=== PATIENT | male | born 1955 | race American Indian/Alaskan Native ===

== ENCOUNTER 2018-03-25 13:59 | Inpatient (IN) | payer MEDICAID, OTHER ==
[2018-03-25 14:55] VITALS: BMI 22.0
--- NOTE | 2018-03-25 15:18 | RAD ---
Date of service: 03/25/2018 HISTORY: chest pain COMPARISON: 08/16/2015 FINDINGS: LUNGS: No active pulmonary disease. PLEURA: No significant pleural effusion identified, no pneumothorax apparent. CARDIOVASCULAR: Normal. OSSEOUS STRUCTURES: No significant abnormalities. VISUALIZED UPPER ABDOMEN: Normal. OTHER FINDINGS: None. IMPRESSION: No active disease.
[2018-03-25 16:01] LABS: BASO # 0.02 K/mm3 (0.0-2.0); BASO % 0.5 % (0.0-3.0); EOS # 0.1 (0.0-0.7); EOS % 1.6 % (1.5-5.0); GRAN # 2.21 (1.4-6.5); GRAN % 58.8 % (50.0-68.0); HEMOGLOBIN 12.7 g/dL (14.0-18.0); LYMPH # 1.2 (1.2-3.4); MEAN CELL VOLUME 86.7 fl (80.0-105.0); MEAN CORPUSCULAR HEMOGLOBIN 30.2 pg (25.0-35.0); MEAN CORPUSCULAR HGB CONC 34.8 g/dl (31.0-37.0); MONO # 0.2 (0.1-0.6); MONO % 6.1 % (1.0-6.0); RBC 4.21 10^6/uL (3.5-6.1); WHITE BLOOD COUNT 3.8 10^3/ul (4.5-11.0)
[2018-03-25 16:14] LABS: TROPONIN I < 0.01 ng/mL
[2018-03-25 16:21] LABS: ALB/GLOB RATIO 1.4 (1.1-1.8); ALBUMIN 3.8 g/dL (3.0-4.8); ALT/SGPT 25 U/L (7-56); AST/SGOT 20 U/L (17-59); BLOOD UREA NITROGEN 12 mg/dL (7-21); CALCIUM 8.9 mg/dL (8.4-10.5); GFR NON-AFRICAN AMERICAN > 60
[2018-03-25] MEDS ORDERED: Sodium Chloride 0.9% 1,000 ML IV STA (16:33)
[2018-03-25] MEDS ORDERED: Insulin Regular 1 UNITS/0.01 ML ML IVP STA (16:34)
[2018-03-25 16:56] LABS: INR 0.97; PARTIAL THROMBOPLASTIN TIME 27.8 Seconds (25.1-36.5)
--- NOTE | 2018-03-25 17:30 | ED PDOC ---
Arrival/HPI - General Historian: Patient - History of Present Illness Narrative History of Present Illness (Text): 03/25/18 17:26 62yo male with pmhx of NIDDM and neuropathy who present with complaint of chest pain and lower back pain. States b/l LE pain is chronic. Also complain of nonproductive chest pain x 2days. States chest pain is localized to his retrosternal area. Describes as pain just sitting there. States he have not seen the Doctor for over a year now. States he found one Metformin yesterday that he took. He denies nausea,vomiting, diaphoresis, fever, chills, Le edema, calf pain, abdominal pain, sick contact, travel, any other complaint. <Ajay Robertson A - Last Filed: 03/25/18 19:33> <Rm Stoner - Last Filed: 03/30/18 18:39> - General Chief Complaint: Chest Pain Time Seen by Provider: 03/25/18 14:07 Past Medical History - Provider Review Nursing Documentation Reviewed: Yes - Infectious Disease Hx of Infectious Diseases: None - Tetanus Immunization Tetanus Immunization: Unknown - Cardiac Hx Cardiac Disorders: No - Pulmonary Hx Respiratory Disorders: No - Neurological Hx Neurological Disorder: No - HEENT Hx HEENT Disorder: No - Renal Hx Renal Disorder: No - Endocrine/Metabolic Hx Diabetes Mellitus Type 2: Yes - Hematological/Oncological Hx Blood Transfusions: No - Musculoskeletal/Rheumatological Hx Musculoskeletal Disorders: No Hx Falls: No - Genitourinary/Gynecological Hx Prostate Cancer: Yes - Psychiatric Hx Psychophysiologic Disorder: No Hx Substance Use: Yes - Surgical History Other/Comment: penis surgery - Anesthesia Hx Anesthesia: No <Ajay Robertson A - Last Filed: 03/25/18 19:33> Family/Social History - Physician Review Nursing Documentation Reviewed: Yes Family/Social History: Unknown Family HX Smoking Status: Current Some Days Smoker Hx Alcohol Use: No Hx Substance Use: Yes Substance used: marijuana <Ajay Robertson A - Last Filed: 03/25/18 19:33> Allergies/Home Meds <Ajay Robertson A - Last Filed: 03/25/18 19:33> <Rm Stoner - Last Filed: 03/30/18 18:39> Allergies/Adverse Reactions: Allergies No Known Allergies Allergy (Verified 08/15/15 10:23) Review of Systems - Physician Review All systems were reviewed & negative as marked: Yes - Review of Systems Constitutional: Normal Eyes: Normal ENT: Normal Respiratory: Cough. absent: SOB, Sputum, Wheezing Cardiovascular: Chest Pain Gastrointestinal: Normal Genitourinary Male: Normal Musculoskeletal: Normal Skin: Normal Neurological: Normal Endocrine: Normal Hemo/Lymphatic: Normal Psychiatric: Normal <Diru,Happiness A - Last Filed: 03/25/18 19:33> Physical Exam Vital Signs Reviewed: Yes Vital Signs Pulse Resp BP Pulse Ox 03/25/18 14:52 85 16 144/79 100 Temperature: Afebrile Blood Pressure: Normal Pulse: Regular Respiratory Rate: Normal Appearance: Positive for: Well-Appearing, Non-Toxic, Comfortable, Other (Appear older than stated age) Pain Distress: None Mental Status: Positive for: Alert and Oriented X 3 Finger Stick Blood Glucose: 498 - Systems Exam Head: Present: Atraumatic, Normocephalic Pupils: Present: PERRL Extroacular Muscles: Present: EOMI Conjunctiva: Present: Normal Mouth: Present: Moist Mucous Membranes Neck: Present: Normal Range of Motion Respiratory/Chest: Present: Clear to Auscultation, Good Air Exchange. No: Respiratory Distress, Accessory Muscle Use, Wheezes, Decreased Breath Sounds, Rales, Retracting, Rhonchi Cardiovascular: Present: Regular Rate and Rhythm, Normal S1, S2. No: Murmurs Abdomen: No: Tenderness, Distention, Peritoneal Signs Back: Present: Normal Inspection Upper Extremity: Present: Normal Inspection. No: Cyanosis, Edema Lower Extremity: Present: Normal Inspection, NORMAL PULSES. No: Edema, CALF TENDERNESS, Isabell's Sign, Tenderness Neurological: Present: GCS=15, CN II-XII Intact, Speech Normal Skin: Present: Warm, Dry, Normal Color. No: Rashes Psychiatric: Present: Alert, Oriented x 3, Normal Insight, Normal Concentration <Diru,Happiness A - Last Filed: 03/25/18 19:33> Vital Signs Temp Pulse Pulse Resp BP Pulse Ox 03/25/18 23:46 68 19 03/25/18 23:33 97.6 F 69 18 137/70 97 03/25/18 22:33 97.6 F 69 18 137/70 97 03/25/18 22:03 70 18 144/78 100 03/25/18 18:00 98 F 67 18 150/83 99 03/25/18 14:52 85 16 144/79 100 <Rm Stoner - Last Filed: 03/30/18 18:39> Medical Decision Making ED Course and Treatment: 03/25/18 19:38 Pt in ED for stated history. He is not complaint with his medication. He appeared older than his stated age. EKG Sinus rhythm with PVC @ 79bpm; RBBB N-STEMI ASA Lab reviewed and first CE was negative Elevated BS was noted and pt was hydrated and 10unit of insulin given. On re evaluation his BS improved s/p. He was not in DKA. CXR NAD Secondary to pt's cardiac history, he will be admitted for further observation. Result and plan was DW the shereen and he agreed. Case was DW Dr. Andrew and she accepted pt for admission. - Lab Interpretations Lab Results: 03/25/18 15:35 03/25/18 15:35 Lab Results 03/25/18 16:46: POC Glucose (mg/dL) 423 H* 03/25/18 15:35: Sodium 133, Potassium 4.4, Chloride 96 L, Carbon Dioxide 32, Anion Gap 11, BUN 12, Creatinine 0.7 L, Est GFR ( Amer) > 60, Est GFR (Non-Af Amer) > 60, Random Glucose 498 H* D, Calcium 8.9, Magnesium 1.7, Total Bilirubin 0.3, AST 20, ALT 25, Alkaline Phosphatase 108, Lactate Dehydrogenase 438, Total Creatine Kinase 42, Troponin I < 0.01, Total Protein 6.5, Albumin 3 .8, Globulin 2.7, Albumin/Globulin Ratio 1.4 03/25/18 15:35: PT 11.0, INR 0.97, APTT 27.8 03/25/18 15:35: WBC 3.8 L D, RBC 4.21, Hgb 12.7 L D, Hct 36.5 L, MCV 86.7 D, MCH 30.2, MCHC 34.8, RDW 12.0, Plt Count 244, MPV 10.0, Gran % 58.8, Lymph % (Auto) 33.0, Leake % (Auto) 6.1 H, Eos % (Auto) 1.6, Baso % (Auto) 0.5, Gran # 2.21, Lymph # (Auto) 1.2, Leake # (Auto) 0.2, Eos # (Auto) 0.1, Baso # (Auto) 0.02 - RAD Interpretation Radiology Orders: 03/25/18 14:42 CHEST PORTABLE [RAD] Stat - Medication Orders Current Medication Orders: Aspirin (Aspirin) 325 mg PO STAT STA Stop: 03/25/18 17:26 Sodium Chloride (Sodium Chloride 0.9%) 1,000 mls @ 999 mls/hr IV .Q1H1M STA Stop: 03/25/18 17:33 Last Admin: 03/25/18 16:44 Dose: 999 mls/hr eMAR Start Stop Document 03/25/18 16:44 [facility] ([id number] Intraven[facility] Solution Start Date 03/25/18 Start Time 16:45 End Date 03/25/18 End time 17:45 Total Infusion Time 60 Discontinued Medications Insulin Human Regular (Humulin R) 10 units IVP ONCE STA Stop: 03/25/18 16:35 Last Admin: 03/25/18 16:45 Dose: 10 units MAR Blood Glucose Document 03/25/18 16:45 [facility] (Rec: 03/25/18 16:46 [facility] [id number]) Blood Glucose Finger Stick Blood Glucose (70-120) 498 IVP Administration Document 03/25/18 16:45 [facility] (Rec: 03/25/18 16:46 [facility] [id number]) Charges for Administration # of IVP Administrations 1 <Ajay Robertson - Last Filed: 03/25/18 19:33> - Lab Interpretations Microbiology Results: Microbiology Results 03/25/18 23:35 Sputum Gram Stain - Final 03/25/18 23:35 Sputum Sputum Culture - Final Yeast Species Lab Results: 03/27/18 05:20 03/27/18 05:20 Lab Results 03/27/18 07:26: POC Glucose (mg/dL) 288 H 03/27/18 05:20: Sodium 134, Potassium 4.2, Chloride 99, Carbon Dioxide 28, Anion Gap 11, BUN 12, Creatinine 0.6 L, Est GFR ( Amer) > 60, Est GFR (Non-Af Amer) > 60, Random Glucose 283 H, Calcium 8.9, Total Bilirubin 0.4, AST 19, ALT 28, Alkaline Phosphatase 72, Total Protein 5.7 L, Albumin 3.2, Globulin 2.5, Albumin/Globulin Ratio 1.3 03/27/18 05:20: WBC 4.1 L, RBC 4.09, Hgb 12.2 L, Hct 35.2 L, MCV 86.1, MCH 29.8, MCHC 34.7, RDW 12.1, Plt Count 223, MPV 10.4, Gran % 46.8 L, Lymph % (Auto) 42.4 H, Leake % (Auto) 8.1 H, Eos % (Auto) 2.2, Baso % (Auto) 0.5, Gran # 1.91, Lymph # (Auto) 1.7, Leake # (Auto) 0.3, Eos # (Auto) 0.1, Baso # (Auto) 0.02 03/26/18 18:30: Urine Opiates Screen Positive H, Urine Methadone Screen Negative, Ur Barbiturates Screen Negative, Ur Phencyclidine Scrn Negative, Ur Amphetamines Screen Negative, U Benzodiazepines Scrn Negative, U Oth Cocaine Metabols Negative, U Cannabinoids Screen Positive H 03/26/18 18:10: D-Dimer, Quantitative 296 H 03/26/18 16:26: POC Glucose (mg/dL) 338 H 03/26/18 11:11: POC Glucose (mg/dL) 267 H 03/26/18 08:40: Troponin I < 0.01 03/26/18 07:31: POC Glucose (mg/dL) 239 H 03/26/18 05:45: TSH 3rd Generation 0.93 03/26/18 05:45: Hemoglobin A1c 13.9 H D 03/26/18 05:45: Sodium 135, Potassium 3.7, Chloride 102, Carbon Dioxide 28, Anion Gap 9 L, BUN 11, Creatinine 0.6 L, Est GFR ( Amer) > 60, Est GFR (Non-Af Amer) > 60, Random Glucose 237 H, Calcium 8.4, Total Bilirubin 0.3, AST 21, ALT 27, Alkaline Phosphatase 68, Total Protein 6.0, Albumin 3.3, Globulin 2.7, Albumin/Globulin Ratio 1.2, Triglycerides 80, Cholesterol 142, LDL Cholesterol Direct 63, HDL Cholesterol 46 03/26/18 05:45: WBC 3.7 L, RBC 4.16, Hgb 12.4 L, Hct 36.0 L, MCV 86.5, MCH 29.8, MCHC 34.4, RDW 12.1, Plt Count 229, MPV 10.1, Gran % 45.3 L, Lymph % (Auto) 42.9 H, Leake % (Auto) 9.4 H, Eos % (Auto) 1.9, Baso % (Auto) 0.5, Gran # 1.68, Lymph # (Auto) 1.6, Leake # (Auto) 0.4, Eos # (Auto) 0.1, Baso # (Auto) 0.02 03/26/18 05:37: POC Glucose (mg/dL) 221 H 03/26/18 02:45: Troponin I < 0.01 03/26/18 01:46: POC Glucose (mg/dL) 337 H 03/25/18 20:54: POC Glucose (mg/dL) 167 H 03/25/18 17:35: POC Glucose (mg/dL) 271 H 03/25/18 17:05: Urine Color Yellow, Urine Appearance Clear, Urine pH 6.5, Ur Specific [place] 1.010, Urine Protein Negative, Urine Glucose (UA) >=1000, Urine Ketones Negative, Urine Blood Negative, Urine Nitrate Negative, Urine Bilirubin Negative, Urine Urobilinogen 0.2, Ur Leukocyte Esterase Negative 03/25/18 16:46: POC Glucose (mg/dL) 423 H* 03/25/18 15:35: Procalcitonin < 0.05 L 03/25/18 15:35: Sodium 133, Potassium 4.4, Chloride 96 L, Carbon Dioxide 32, Anion Gap 11, BUN 12, Creatinine 0.7 L, Est GFR ( Amer) > 60, Est GFR (Non-Af Amer) > 60, Random Glucose 498 H* D, Calcium 8.9, Magnesium 1.7, Total Bilirubin 0.3, AST 20, ALT 25, Alkaline Phosphatase 108, Lactate Dehydrogenase 438, Total Creatine Kinase 42, Troponin I < 0.01, Total Protein 6.5, Albumin 3.8, Globulin 2.7, Albumin/Globulin Ratio 1.4 03/25/18 15:35: PT 11.0, INR 0.97, APTT 27.8 03/25/18 15:35: WBC 3.8 L D, RBC 4.21, Hgb 12.7 L D, Hct 36.5 L, MCV 86.7 D, MCH 30.2, MCHC 34.8, RDW 12.0, Plt Count 244, MPV 10.0, Gran % 58.8, Lymph % (Auto) 33.0, Leake % (Auto) 6.1 H, Eos % (Auto) 1.6, Baso % (Auto) 0.5, Gran # 2.21, Lymph # (Auto) 1.2, Leake # (Auto) 0.2, Eos # (Auto) 0.1, Baso # (Auto) 0.02 - RAD Interpretation Radiology Orders: 03/25/18 14:42 CHEST PORTABLE [RAD] Stat 03/25/18 17:32 CHEST PORTABLE [RAD] Stat 03/26/18 19:36 ANGIO CHEST PE PROTOCOL [CT] Routine - Medication Orders Current Medication Orders: Discontinued Medications Acetaminophen (Tylenol 325mg Tab) 650 mg PO Q6H PRN PRN Reason: Fever >100.4 F Aspirin (Aspirin) 325 mg PO STAT STA Stop: 03/25/18 17:26 Last Admin: 03/25/18 17:58 Dose: 325 mg Aspirin (Aspirin Chewable) 81 mg PO DAILY MARYCARMEN Last Admin: 03/29/18 09:18 Dose: 81 mg Azithromycin (Zithromax) 500 mg PO DAILY MARYCARMEN Stop: 03/31/18 10:01 Last Admin: 03/29/18 09:18 Dose: 500 mg Dextrose (Dextrose 50% Inj) 0 ml IV STAT PRN; Protocol PRN Reason: Hypoglycemia Protocol Enoxaparin Sodium (Lovenox) 40 mg SC DAILY MARYCARMEN; Protocol Last Admin: 03/29/18 09:19 Dose: 40 mg Subcutaneous Administrations Document 03/29/18 09:19 RDS (Rec: 03/29/18 09:19 RDS [id number]) Charges for Administration # of Subcutaneous Administrations 1 Famotidine (Pepcid) 20 mg PO 1000,2200 [facility] Last Admin: 03/29/18 09:18 Dose: 20 mg Guaifenesin (Robitussin) 100 mg PO Q4H PRN PRN Reason: Cough Guaifenesin/Codeine Phosphate (Robitussin W/Codeine) 5 ml PO Q4H PRN PRN Reason: Cough and congestion Last Admin: 03/26/18 11:57 Dose: 5 ml Hydralazine HCl (Apresoline) 10 mg IVP Q6H PRN PRN Reason: Systolic Blood Pressure Sodium Chloride (Sodium Chloride 0.9%) 1,000 mls @ 999 mls/hr IV .Q1H1M STA Stop: 03/25/18 17:33 Last Admin: 03/25/18 16:44 Dose: 999 mls/hr eMAR Start Stop Document 03/25/18 16:44 [employer] (Rec: 03/25/18 16:45 [employer] [id number]) Intravenous Solution Start Date 03/25/18 Start Time 16:45 End Date 03/25/18 End time 17:45 Total Infusion Time 60 Sodium Chloride (Sodium Chloride 0.9%) 1,000 mls @ 100 mls/hr IV .Q10H MARYCARMEN Last Admin: 03/26/18 15:45 Dose: Not Given Non-Admin Reason: IV bag still infusing Azithromycin (Zithromax 500mg In Ns) 500 mg in 250 mls @ 167 mls/hr IVPB DAILY MARYCARMEN; Protocol Last Admin: 03/27/18 09:33 Dose: 167 mls/hr eMAR Start Stop Document 03/27/18 09:33 SG (Rec: 03/27/18 09:33 SG [id number]) Intravenous Solution Start Date 03/27/18 Start Time 09:33 End Date 03/27/18 End time 11:03 Total Infusion Time 90 Dextrose (Dextrose 5% In Water 1000 Ml) 1,000 mls @ 0 mls/hr IV .Q0M PRN; Protocol PRN Reason: Hypoglycemia Protocol Insulin Detemir (Levemir) 10 unit SC HS MARYCARMEN Last Admin: 03/27/18 22:38 Dose: 10 unit MAR Blood Glucose Document 03/27/18 22:38 SRE (Rec: 03/27/18 22:38 SRE [id number]) Blood Glucose Finger Stick Blood Glucose (70-120) 94 Subcutaneous Administrations Document 03/27/18 22:38 SRE (Rec: 03/27/18 22:38 SRE [id number]) Injection Site MAR Injection Site Left Arm Charges for Administration # of Subcutaneous Administrations 1 Insulin Detemir (Levemir) 15 unit SC HS MARYCARMEN Last Admin: 03/28/18 21:42 Dose: 15 units MAR Blood Glucose Document 03/28/18 21:42 SSE (Rec: 03/28/18 21:42 SSE [id number]) Blood Glucose Finger Stick Blood Glucose (70-120) 201 Subcutaneous Administrations Document 03/28/18 21:42 SSE (Rec: 03/28/18 21:42 SSE [id number]) Charges for Administration # of Subcutaneous Administrations 1 Insulin Detemir (Levemir) 10 unit SC HS MARYCARMEN Insulin Detemir (Levemir) 8 unit SC HS MARYCARMEN Insulin Human Lispro (Humalog Med) 0 units SC Q4H MARYCARMEN; Protocol Last Admin: 03/26/18 19:50 Dose: Not Given Non-Admin Reason: med d.c Insulin Human Lispro (Humalog Med) 5 units SC [facility]; Protocol Last Admin: 03/29/18 17:30 Dose: 5 units MAR Blood Glucose Document 03/29/18 17:30 RDS (Rec: 03/29/18 17:30 RDS [id number]) Blood Glucose Finger Stick Blood Glucose (70-120) 191 Subcutaneous Administrations Document 03/29/18 17:30 RDS (Rec: 03/29/18 17:30 RDS [id number]) Charges for Administration # of Subcutaneous Administrations 1 Insulin Human Regular (Humulin R) 10 units IVP ONCE STA Stop: 03/25/18 16:35 Last Admin: 03/25/18 16:45 Dose: 10 units MAR Blood Glucose Document 03/25/18 16:45 [facility] (Rec: 03/25/18 16[facility]46 [id number] Blood Glucose Finger Stick Blood Glucose (70-120) 498 IVP Administration Document 03/25/18 16:45 [facility] (Rec: 03/25/18 16:46 [facility] [id number]) Charges for Administration # of IVP Administrations 1 Insulin Human Regular (Humulin R High) 0 units SC [facility]; Protocol Last Admin: 03/28/18 08:50 Dose: 4 units MAR Blood Glucose Document 03/28/18 08:50 JJ (Rec: 03/28/18 08:50 JJ [id number]) Blood Glucose Finger Stick Blood Glucose (70-120) 232 Subcutaneous Administrations Document 03/28/18 08:50 JJ (Rec: 03/28/18 08:50 JJ [id number]) Injection Site MAR Injection Site Left Abdomen Charges for Administration # of Subcutaneous Administrations 1 Insulin Human Regular (Humulin R) 5 units SC [facility] Last Admin: 03/28/18 11:49 Dose: 5 unit MAR Blood Glucose Document 03/28/18 11:49 JJ (Rec: 03/28/18 11:49 J [id number]) Blood Glucose Finger Stick Blood Glucose (70-120) 342 Subcutaneous Administrations Document 03/28/18 11:49 J (Rec: 03/28/18 11:49 [id number]) Injection Site MAR Injection Site Left Abdomen Charges for Administration # of Subcutaneous Administrations 1 Insulin Human Regular (Humulin R Low) 0 units SC [facility]; Protocol Last Admin: 03/29/18 17:30 Dose: 1 unit MAR Blood Glucose Document 03/29/18 17:30 RDS (Rec: 03/29/18 17:30 RDS [id number]) Blood Glucose Finger Stick Blood Glucose (70-120) 191 Subcutaneous Administrations Document 03/29/18 17:30 RDS (Rec: 03/29/18 17:30 RDS [id number]) Charges for Administration # of Subcutaneous Administrations 1 Lisinopril (Zestril) 5 mg PO DAILY [facility] Last Admin: 03/29/18 09:18 Dose: 5 mg MAR Pulse and Blood Pressure Document 03/29/18 09:18 RDS (Rec: 03/29/18 09:18 RDS [id number]) Pulse Pulse Rate (60-90) 74 Blood Pressure Blood Pressure (100/60-150/90) 157/101 Nystatin (Nystatin Oral Susp) 5 ml PO QID [facility] Last Admin: 03/29/18 17:30 Dose: 5 ml Ondansetron HCl (Zofran Inj) 4 mg IVP Q6H PRN PRN Reason: Nausea/Vomiting <Rm Stoner - Last Filed: 03/30/18 18:39> - PA / [employer] PPM CONSULTANT / Resident Statement / has reviewed & agrees with the documentation as recorded. <Rm Stoner - Last Filed: 03/30/18 18:39> Disposition/Present on Arrival - Present on Arrival Any Indicators Present on Arrival: No History of DVT/PE: No History of Uncontrolled Diabetes: No Urinary Catheter: No History of Decub. Ulcer: No History Surgical Site Infection Following: None - Disposition Have Diagnosis and Disposition been Completed?: Yes Disposition Time: 17:30 Patient Plan: Admission <Ajay Robertson - Last Filed: 03/25/18 19:33> <Rm Stoner - Last Filed: 03/30/18 18:39> - Disposition Diagnosis: Chest pain, Uncontrolled diabetes mellitus Disposition: HOSPITALIZED Condition: STABLE
[2018-03-25 17:31] LABS: PH,URINE 6.5 (4.7-8.0); URINE BILIRUBIN NEGATIVE (NEGATIVE); URINE BLOOD NEGATIVE (NEGATIVE); URINE GLUCOSE (UA) >=1000 mg/dL (NEGATIVE); URINE LEUKOCYTE ESTERASE NEGATIVE Leu/uL (NEGATIVE); URINE PROTEIN NEGATIVE mg/dL (<30 mg/dL); URINE UROBILINOGEN 0.2 E.U./dL (<1 E.U./dL)
[2018-03-25 17:32] LABS: URINE APPEARANCE CLEAR (CLEAR); URINE COLOR YELLOW (YELLOW)
--- NOTE | 2018-03-25 17:49 | CARD ---
APPROVED REPORT Date of service: 03/25/2018 EKG Measurement Heart [id number] <Conclusion> Sinus rhythm with sinus arrhythmia with premature ventricular complexes or fusion complexes Right bundle branch block Septal infarct, age undetermined Abnormal ECG
--- NOTE | 2018-03-25 18:02 | RAD ---
Date of service: 03/25/2018 HISTORY: chest pain COMPARISON: 03/25/2018. FINDINGS: LUNGS: The lungs are well inflated and clear. PLEURA: No significant pleural effusion identified, no pneumothorax apparent. CARDIOVASCULAR: Normal. OSSEOUS STRUCTURES: No significant abnormalities. VISUALIZED UPPER ABDOMEN: Normal. OTHER FINDINGS: None. IMPRESSION: No active disease.
--- NOTE | 2018-03-25 18:31 | CP.PCM.HP ---
<Camden Way - Last Filed: 03/25/18 19:52> History of Present Illness - History of Present Illness History of Present Illness: HISTORY & PHYSICAL NOTE FOR HOSPITALIST TEAM Camden Way D.O. PGY-1 CC: Chest pain x 1 week 62 y/o M with PMHx of NIDDM presents to [facility] with complaints of substernal, pressure like, non-radiating, 8/10 severity chest pain that has been ongoing for the past week that has progressively worsened. Pain is worse with cough and deep breathing and movement and alleviated with a home remedy of honey/lemon. Pt also complains of an associated head cold and cough with productive white sputum that he has also experienced for the past week. He reports that chest pain is associated with coughing bouts. He reports his chest pain has subsided upon interview and was 6/10 severity. He reports that he has neuropathy in his legs due to his diabetes. He reports that he hasn't been taking his glyburide because he doesn't have tablets remaining. He denies fevers, chills, headache, dizziness, palpitations, shortness of breath, nausea, vomiting, constipation, diarrhea, dysuria. PMHx: DM2 All: NKDA PSH: Denies SH: Smoke "1 joint" marijuana 5x/weeks Hosp: Denies recent Meds: Metformin 1000mg bid. Glyburide 5mg bid PMD: Dr. Kathi Moon Pharmacy: [facility] pharmacy Insurance: [facility] care Present on Admission - Present on Admission Any Indicators Present on Admission: No Review of Systems - Review of Systems Review of Systems: as per HPI Past Patient History - Infectious Disease Hx of Infectious Diseases: None - Tetanus Immunizations Tetanus Immunization: Unknown - Past Social History Smoking Status: Current Some Days Smoker - CARDIAC Hx Cardiac Disorders: No - PULMONARY Hx Respiratory Disorders: No - NEUROLOGICAL Hx Neurological Disorder: No - HEENT Hx HEENT Problems: No - RENAL Hx Chronic Kidney Disease: No - ENDOCRINE/METABOLIC Hx Diabetes Mellitus Type 2: Yes - HEMATOLOGICAL/ONCOLOGICAL Hx Blood Transfusions: No - MUSCULOSKELETAL/RHEUMATOLOGICAL Hx Musculoskeletal Disorders: No Hx Falls: No - GENITOURINARY/GYNECOLOGICAL Hx Prostate Cancer: Yes - PSYCHIATRIC Hx Psychophysiologic Disorder: No Hx Substance Use: Yes - SURGICAL HISTORY Other/Comment: penis surgery - ANESTHESIA Hx Anesthesia: No Meds Allergies/Adverse Reactions: Allergies Allergy/AdvReac Type Severity Reaction Status Date / Time No Known Allergies Allergy Verified 08/15/15 10:23 Physical Exam - Constitutional Appears: Well, Non-toxic, No Acute Distress - Head Exam Head Exam: NORMAL INSPECTION, NORMOCEPHALIC - Eye Exam Eye Exam: EOMI, Normal appearance - ENT Exam ENT Exam: Mucous Membranes Moist, Normal Exam - Neck Exam Neck exam: Positive for: Normal Inspection - Respiratory Exam Respiratory Exam: Rhonchi (b/l), NORMAL BREATHING PATTERN - Cardiovascular Exam Cardiovascular Exam: REGULAR RHYTHM, +S1, +S2 - GI/Abdominal Exam GI & Abdominal Exam: Normal Bowel Sounds, Soft. absent: Tenderness - Extremities Exam Extremities exam: Positive for: normal inspection. Negative for: calf tenderness - Back Exam Back exam: NORMAL INSPECTION - Neurological Exam Neurological exam: Alert, CN II-XII Intact, Oriented x3 - Psychiatric Exam Psychiatric exam: Normal Affect, Normal Mood - Skin Skin Exam: Dry, Intact, Warm Results - Vital Signs Recent Vital Signs: Last Vital Signs Temp 98 F 03/25/18 18:00 Pulse 67 03/25/18 18:00 Resp 18 03/25/18 18:00 BP 150/83 03/25/18 18:00 Pulse Ox 99 03/25/18 18:00 - Labs Result Diagrams: 03/25/18 15:35 03/25/18 15:35 Labs: Laboratory Results - last 24 hr 03/25/18 03/25/18 03/25/18 15:35 15:35 15:35 WBC 3.8 L D RBC 4.21 Hgb 12.7 L D Hct 36.5 L MCV 86.7 D MCH 30.2 MCHC 34.8 RDW 12.0 Plt Count 244 MPV 10.0 Gran % 58.8 Lymph % (Auto) 33.0 Canadian % (Auto) 6.1 H Eos % (Auto) 1.6 Baso % (Auto) 0.5 Gran # 2.21 Lymph # (Auto) 1.2 Canadian # (Auto) 0.2 Eos # (Auto) 0.1 Baso # (Auto) 0.02 PT 11.0 INR 0.97 APTT 27.8 Sodium 133 Potassium 4.4 Chloride 96 L Carbon Dioxide 32 Anion Gap 11 BUN 12 Creatinine 0.7 L Est GFR ( Amer) > 60 Est GFR (Non-Af Amer) > 60 POC Glucose (mg/dL) Random Glucose 498 H* D Calcium 8.9 Magnesium 1.7 Total Bilirubin 0.3 AST 20 ALT 25 Alkaline Phosphatase 108 Lactate Dehydrogenase 438 Total Creatine Kinase 42 Troponin I < 0.01 Total Protein 6.5 Albumin 3.8 Globulin 2.7 Albumin/Globulin Ratio 1.4 Urine Color Urine Appearance Urine pH Ur Specific [place] Urine Protein Urine Glucose (UA) Urine Ketones Urine Blood Urine Nitrate Urine Bilirubin Urine Urobilinogen Ur Leukocyte Esterase 03/25/18 03/25/18 03/25/18 16:46 17:05 17:35 WBC RBC Hgb Hct MCV MCH MCHC RDW Plt Count MPV Gran % Lymph % (Auto) [place] % (Auto) Eos % (Auto) Baso % (Auto) Gran # Lymph # (Auto) Canadian # (Auto) Eos # (Auto) Baso # (Auto) PT INR APTT Sodium Potassium Chloride Carbon Dioxide Anion Gap BUN Creatinine Est GFR ( Amer) Est GFR (Non-Af Amer) POC Glucose (mg/dL) 423 H* 271 H Random Glucose Calcium Magnesium Total Bilirubin AST ALT Alkaline Phosphatase Lactate Dehydrogenase Total Creatine Kinase Troponin I Total Protein Albumin Globulin Albumin/Globulin Ratio Urine Color Yellow Urine Appearance Clear Urine pH 6.5 Ur Specific [place] 1.010 Urine Protein Negative Urine Glucose (UA) >=1000 Urine Ketones Negative Urine Blood Negative Urine Nitrate Negative Urine Bilirubin Negative Urine Urobilinogen 0.2 Ur Leukocyte Esterase Negative Assessment & Plan - Assessment and Plan (Free Text) Assessment: 62 y/o M admitted for chest pain to r/o ACS. EKG obtained in ER showed RBBB, unchanged from previous EKG. Chest xray was negative. Initial troponin was negative. Pt admitted to observation Plan: Chest Pain r/o ACS Initial troponin 0.1 EKG: Septal infarct, age undetermined. Sinus arrythmia. RBBB, unchanged from previous EKG. Chest Xray: negative Trend troponins q6H Trend EKG q6H Start aspirin 81mg Start atorvastatin NS@100 Hx of uncontrolled NIDDM Secondary to non-compliance Obtain Hgb A1c Start Insulin SS Accuchecks q4h Cough Start azithromycin f/u sputum culture Start guaifenesin/codeine HTN Start lisinopril Start hydralazine IVP prn DVT/GI PPx: Lovenox/Pepcid <Yong Jenkins - Last Filed: 03/25/18 20:25> Results - Vital Signs Recent Vital Signs: Last Vital Signs Temp 98 F 03/25/18 18:00 Pulse 67 03/25/18 18:00 Resp 18 03/25/18 18:00 BP 150/83 03/25/18 18:00 Pulse Ox 99 03/25/18 18:00 - Labs Result Diagrams: 03/25/18 15:35 03/25/18 15:35 Labs: Laboratory Results - last 24 hr 03/25/18 03/25/18 03/25/18 15:35 15:35 15:35 WBC 3.8 L D RBC 4.21 Hgb 12.7 L D Hct 36.5 L MCV 86.7 D MCH 30.2 MCHC 34.8 RDW 12.0 Plt Count 244 MPV 10.0 Gran % 58.8 Lymph % (Auto) 33.0 Canadian % (Auto) 6.1 H Eos % (Auto) 1.6 Baso % (Auto) 0.5 Gran # 2.21 Lymph # (Auto) 1.2 Canadian # (Auto) 0.2 Eos # (Auto) 0.1 Baso # (Auto) 0.02 PT 11.0 INR 0.97 APTT 27.8 Sodium 133 Potassium 4.4 Chloride 96 L Carbon Dioxide 32 Anion Gap 11 BUN 12 Creatinine 0.7 L Est GFR ( Amer) > 60 Est GFR (Non-Af Amer) > 60 POC Glucose (mg/dL) Random Glucose 498 H* D Calcium 8.9 Magnesium 1.7 Total Bilirubin 0.3 AST 20 ALT 25 Alkaline Phosphatase 108 Lactate Dehydrogenase 438 Total Creatine Kinase 42 Troponin I < 0.01 Total Protein 6.5 Albumin 3.8 Globulin 2.7 Albumin/Globulin Ratio 1.4 Urine Color Urine Appearance Urine pH Ur Specific [place] Urine Protein Urine Glucose (UA) Urine Ketones Urine Blood Urine Nitrate Urine Bilirubin Urine Urobilinogen Ur Leukocyte Esterase 03/25/18 03/25/18 03/25/18 16:46 17:05 17:35 WBC RBC Hgb Hct MCV MCH MCHC RDW Plt Count MPV Gran % Lymph % (Auto) [place] % (Auto) Eos % (Auto) Baso % (Auto) Gran # Lymph # (Auto) [place] # (Auto) Eos # (Auto) Baso # (Auto) PT INR APTT Sodium Potassium Chloride Carbon Dioxide Anion Gap BUN Creatinine Est GFR ( Amer) Est GFR (Non-Af Amer) POC Glucose (mg/dL) 423 H* 271 H Random Glucose Calcium Magnesium Total Bilirubin AST ALT Alkaline Phosphatase Lactate Dehydrogenase Total Creatine Kinase Troponin I Total Protein Albumin Globulin Albumin/Globulin Ratio Urine Color Yellow Urine Appearance Clear Urine pH 6.5 Ur Specific [place] 1.010 Urine Protein Negative Urine Glucose (UA) >=1000 Urine Ketones Negative Urine Blood Negative Urine Nitrate Negative Urine Bilirubin Negative Urine Urobilinogen 0.2 Ur Leukocyte Esterase Negative Attending/Attestation - Attestation I have personally seen and examined this patient.: Yes I have fully participated in the care of the patient.: Yes I have reviewed all pertinent clinical information: Yes Notes (Text): Patient seen and examined with the residents, agree with above Symptoms of productive cough with white/yellow phlegm x5 days; atypical chest pain-cough induced (non pressure like or substernal) afebrile, no leukocytosis; cxr with napd negative trop; no acute ischemic changes on ekg f/u on PCT and sputum cx; will start Abx with Azithromycin for URI/bronchitis glycemic control; states he ran out of his DM oral medications supportive care; cough suppressants, ivf
[2018-03-25] MEDS ORDERED: guaiFENesin-Codeine 100-10mg/5ml Syrup (5 ml) UD PO PRN (18:45)
[2018-03-25] MEDS: Sodium Chloride 0.9% 1,000 ML IV SCH (20:00)
[2018-03-25] MEDS: Insulin Lispro (humaLOG) MEDIUM Coverage SC SCH (20:59)
[2018-03-25] MEDS ORDERED: Insulin Lispro (humaLOG) MEDIUM Coverage SC SCH (22:00)
[2018-03-26] MEDS: Insulin Lispro (humaLOG) MEDIUM Coverage SC SCH ×6 (02:00→19:50)
[2018-03-26] MEDS: Sodium Chloride 0.9% 1,000 ML IV SCH ×2 (06:47→15:45)
[2018-03-26 06:52] LABS: BASO # 0.02 K/mm3 (0.0-2.0); BASO % 0.5 % (0.0-3.0); EOS # 0.1 (0.0-0.7); EOS % 1.9 % (1.5-5.0); GRAN # 1.68 (1.4-6.5); GRAN % 45.3 % (50.0-68.0); HEMOGLOBIN 12.4 g/dL (14.0-18.0); LYMPH # 1.6 (1.2-3.4); LYMPH % 42.9 % (22.0-35.0); MEAN CELL VOLUME 86.5 fl (80.0-105.0); MEAN CORPUSCULAR HEMOGLOBIN 29.8 pg (25.0-35.0); MEAN CORPUSCULAR HGB CONC 34.4 g/dl (31.0-37.0); MEAN PLATELET VOLUME 10.1 fl (7.0-11.0); MONO # 0.4 (0.1-0.6); MONO % 9.4 % (1.0-6.0); RBC 4.16 10^6/uL (3.5-6.1); RED CELL DISTRIBUTION WIDTH 12.1 % (11.5-14.5); WHITE BLOOD COUNT 3.7 10^3/ul (4.5-11.0)
--- NOTE | 2018-03-26 07:22 | CP.PCM.PN ---
<Camden Way - Last Filed: 03/26/18 19:47> Subjective - Date & Time of Evaluation Date of Evaluation: 03/26/18 Time of Evaluation: 07:21 - Subjective Subjective: INTERNAL MEDICINE PROGRESS NOTE FOR DR. ANGIE Way D.O. PGY-1 Pt seen and examined at bedside this am. Pt continues to complain of cough. He reports his chest pain is still worsened when he coughs. He denies fevers, chills, night sweats, headache, dizziness, palpitations, shortness of breath, diaphoresis, constipation, diarrhea, dysuria. Objective - Vital Signs/Intake and Output Vital Signs (last 24 hours): Temp Pulse Resp BP Pulse Ox 98.7 F 73 20 140/81 97 03/26/18 06:00 03/26/18 06:00 03/26/18 06:00 03/26/18 06:00 03/26/18 06:00 Intake and Output: 03/26/18 03/26/18 06:59 18:59 Intake Total 940 Output Total 425 Balance 515 - Medications Medications: Current Medications Acetaminophen (Tylenol 325mg Tab) 650 mg PO Q6H PRN PRN Reason: Fever >100.4 F Aspirin (Aspirin Chewable) 81 mg PO DAILY MARYCARMEN Enoxaparin Sodium (Lovenox) 40 mg SC DAILY MARYCARMEN; Protocol Famotidine (Pepcid) 20 mg PO 1000,2200 MARYCARMEN Last Admin: 03/25/18 21:00 Dose: 20 mg Guaifenesin/Codeine Phosphate (Robitussin W/Codeine) 5 ml PO Q4H PRN PRN Reason: Cough and congestion Hydralazine HCl (Apresoline) 10 mg IVP Q6H PRN PRN Reason: Systolic Blood Pressure Sodium Chloride (Sodium Chloride 0.9%) 1,000 mls @ 100 mls/hr IV .Q10H MARYCARMEN Last Admin: 03/26/18 06:47 Dose: 100 mls/hr Azithromycin (Zithromax 500mg In Ns) 500 mg in 250 mls @ 167 mls/hr IVPB DAILY MARYCARMEN; Protocol Insulin Human Lispro (Humalog Med) 0 units SC Q4H MARYCARMEN; Protocol Last Admin: 03/26/18 05:00 Dose: Not Given Lisinopril (Zestril) 5 mg PO DAILY MARYCARMEN Ondansetron HCl (Zofran Inj) 4 mg IVP Q6H PRN PRN Reason: Nausea/Vomiting - Labs Labs: 03/26/18 05:45 03/25/18 15:35 PT 11.0 SECONDS (9.4-12.5) 03/25/18 15:35 INR 0.97 03/25/18 15:35 APTT 27.8 Seconds (25.1-36.5) 03/25/18 15:35 - Constitutional Appears: Well, Non-toxic, No Acute Distress - Head Exam Head Exam: NORMAL INSPECTION, NORMOCEPHALIC - Eye Exam Eye Exam: EOMI, Normal appearance - ENT Exam ENT Exam: Mucous Membranes Moist, Normal Exam - Neck Exam Neck Exam: Normal Inspection. absent: Meningismus - Respiratory Exam Respiratory Exam: Rhonchi, NORMAL BREATHING PATTERN. absent: Chest Wall Tenderness - Cardiovascular Exam Cardiovascular Exam: REGULAR RHYTHM, +S1, +S2 - GI/Abdominal Exam GI & Abdominal Exam: Soft, Normal Bowel Sounds. absent: Tenderness - Extremities Exam Extremities Exam: Normal Capillary Refill, Normal Inspection. absent: Calf Tenderness - Back Exam Back Exam: NORMAL INSPECTION. absent: CVA tenderness (L), CVA tenderness (R) - Neurological Exam Neurological Exam: Alert, Awake, Oriented x3 - Psychiatric Exam Psychiatric exam: Normal Affect, Normal Mood - Skin Skin Exam: Dry, Intact, Warm Assessment and Plan - Assessment and Plan (Free Text) Assessment: 62 y/o M admitted for chest pain to r/o ACS. EKG obtained in ER showed RBBB, unchanged from previous EKG. Chest xray was negative. Initial troponin was negative. Pt admitted to observation Plan: Chest Pain r/o ACS troponin x 3: (-). EKGs unchanged EKG: Septal infarct, age undetermined. Sinus arrythmia. RBBB, unchanged from previous EKG. Chest Xray: negative Start aspirin 81mg Start atorvastatin NS@100 Hx of uncontrolled NIDDM Secondary to non-compliance Start High-Insulin SS Accuchecks q4h Cough Start azithromycin f/u sputum culture Start guaifenesin HTN Start lisinopril Start hydralazine IVP prn DVT/GI PPx: Lovenox/Pepcid Case seen, examined and discussed with attending physician, Dr. Andrew <Venus Andrew R - Last Filed: 03/30/18 17:34> Objective - Vital Signs/Intake and Output Vital Signs (last 24 hours): Temp Pulse Resp BP Pulse Ox 98.6 F 77 16 157/77 H 100 03/29/18 18:00 03/29/18 18:00 03/29/18 18:00 03/29/18 18:00 03/29/18 18:00 - Labs Labs: 03/29/18 06:00 03/29/18 06:00 PT 11.0 SECONDS (9.4-12.5) 03/25/18 15:35 INR 0.97 03/25/18 15:35 APTT 27.8 Seconds (25.1-36.5) 03/25/18 15:35 Attending/Attestation - Attestation I have personally seen and examined this patient.: Yes I have fully participated in the care of the patient.: Yes I have reviewed all pertinent clinical information, including history, physical exam and plan: Yes Notes (Text): Patient seen and examined by me with resident at 11:45AM on 03/26/18 with resident. Case including HPI, physical exam, and assessment and plan discussed with resident. Agree with above with following additions/corrections. Patient is a 62-year-old male with past medical history significant for type 2 diabetes that came in with chest pain. Patient states that he is feeling much better. Cough has improved. Chest pain has also improved. Patient states he has a little pain in his chest only when he coughs. No abdominal pain, nausea, or vomiting. No shortness of breath or palpitations. No headaches or dizziness. No fevers or chills. No dysuria. No diarrhea or constipation. Physical exam: Gen: Awake and alert lying in bed in no acute distress HEENT: Normocephalic, atraumatic. Extraocular muscles intact, pupils equal reactive. No scleral icterus. Oropharynx is pink and moist. Neck is supple. Cardiovascular: Normal rhythm. Normal S1, S2. No murmurs, rubs, or gallops appreciated Pulmonary: Normal respiratory effort. No rhonchi, rales, or wheezing appreciated. Gastrointestinal: Soft. Nondistended. Nontender. Positive bowel sounds all 4 quadrants, no guarding. Musculoskeletal: Normal range of motion all extremities. No calf tenderness. No edema appreciated. Central nervous system: AAO x 3. Dermatologic: Skin warm and dry. Assessment and plan: Patient is a 62-year-old male with past medical history significant for type 2 diabetes that came in with chest pain. 1. Chest pain. Pleuritic. Secondary to cough. ACS ruled out. Troponins within normal limits. Cardiology following, recommendations appreciated. Chest CT and echo pending. Continue ASA and lisinopril 2. Cough. URI. Patient was started on Zithromax on admission. Will complete treatment. 3. DM2 with hyperglycemia. Pending HgbA1C. Continue insulin sliding scale. Monitor accuchecks. 4. Hypertension. Continue lisinopril Case discussed in detail with patient regarding current diagnosis and treatment plan. All questions answered.
[2018-03-26 07:23] LABS: ALB/GLOB RATIO 1.2 (1.1-1.8); ALBUMIN 3.3 g/dL (3.0-4.8); ALT/SGPT 27 U/L (7-56); AST/SGOT 21 U/L (17-59); BLOOD UREA NITROGEN 11 mg/dL (7-21); CALCIUM 8.4 mg/dL (8.4-10.5); GFR NON-AFRICAN AMERICAN > 60; HDL CHOLESTEROL 46 mg/dL (29-60)
[2018-03-26 07:30] LABS: LDL CHOLESTEROL 63 mg/dL (0-129)
--- NOTE | 2018-03-26 09:53 | CARD ---
APPROVED REPORT Date of service: 03/26/2018 EKG Measurement Heart [id number] <Conclusion> Sinus rhythm with marked sinus arrhythmia with occasional premature atrial complexes Right bundle branch block Abnormal ECG
[2018-03-26] MEDS: Azithromycin 500MG/NS 250ml 500 MG/250 ML BAG IVPB SCH (10:08)
[2018-03-26] MEDS: Enoxaparin 40 mg Syringe SC SCH (10:09)
[2018-03-26] MEDS ORDERED: guaiFENesin 100 mg/5 ml Syrup UD PO PRN (12:54)
--- NOTE | 2018-03-26 16:58 | CARD ---
APPROVED REPORT Date of service: 03/26/2018 EXAM: Two-dimensional and M-mode echocardiogram with Doppler and color Doppler. INDICATION Chest Pain 2D DIMENSIONS Left Atrium (2D)4.4 (1.6-4.0cm)IVSd1.2 (0.7-1.1cm) LVDd4.3 (3.9-5.9cm)PWd1.0 (0.7-1.1cm) LVDs2.8 (2.5-4.0cm)FS (%) 35.7 % LVEF (%)65.5 (>50%) M-Mode DIMENSIONS Aortic Root2.90 (2.2-3.7cm)Aortic Cusp Exc.1.80 (1.5-2.0cm) Aortic Valve AoV Peak Pirwmoxb768.0cm/Cecilia Peak GR.8mmHg Mitral Valve MV E Djjfnilc11.3cm/sMV A Knhiahwc36.4cm/sE/A ratio1.2 TDI Lateral E' Peak V11.40cm/sMedial E' Peak V7.99cm/sE/Lateral E'8.4 E/Medial E'12.1 Tricuspid Valve TR Peak [id number]/sRAP [id number] Peak Gr.63mmHg [id number] LEFT VENTRICLE The left ventricle is normal size. There is normal left ventricular wall thickness. The left ventricular function is normal. The left ventricular ejection fraction is within the normal range. There is normal LV segmental wall motion. The left ventricular diastolic function is normal. RIGHT VENTRICLE The right ventricle is normal size. There is normal right ventricular wall thickness. The right ventricular systolic function is normal. ATRIA The left atrium is mildly dilated. The right atrium is mildly dilated. AORTIC VALVE The aortic valve is mildly thickened. No aortic regurgitation is present. There is no aortic valvular stenosis. MITRAL VALVE The mitral valve is mildly thickened. There is no mitral valve regurgitation noted. There is no mitral valve stenosis. TRICUSPID VALVE There is moderate tricuspid regurgitation. There is severe pulmonary hypertension. PULMONIC VALVE The pulmonary valve is normal in structure. There is no pulmonic valvular regurgitation. GREAT VESSELS The aortic root is normal in size. The IVC is normal in size and collapses >50% with inspiration. PERICARDIAL EFFUSION There is no pericardial effusion. <Conclusion> The left ventricle is normal size. There is normal left ventricular wall thickness. The left ventricular function is normal. The left ventricular ejection fraction is within the normal range. There is normal LV segmental wall motion. The left ventricular diastolic function is normal. There is moderate tricuspid regurgitation. There is severe pulmonary hypertension.
[2018-03-26 19:29] LABS: BARBITURATES, UR NEGATIVE (NEGATIVE); BENZODIAZEPINES, UR NEGATIVE (NEGATIVE); OPIATES, UR POSITIVE (NEGATIVE); PHENCYCLIDINE, UR NEGATIVE (NEGATIVE)
[2018-03-26] MEDS ORDERED: Iohexol 350 MG/100 ML VIAL ONE (20:45)
--- NOTE | 2018-03-26 22:41 | CON ---
DATE: 03/26/2018 REASON FOR CONSULTATION: Chest pain. HISTORY OF PRESENT ILLNESS: The patient is a 62-year-old male, originally from [place] who has history of diabetes mellitus, peripheral neuropathy. He takes weed for his peripheral neuropathy, has been experiencing upper respiratory tract symptoms and that he attributed to exposure to with some chest discomfort. Patient is unaware of any prior cardiac history. The patient also reported low back pain and nonproductive cough. SOCIAL HISTORY: Patient is a smoker and he smokes weed. MEDICATIONS: Hydralazine 10 mg intravenously every 6 hours p.r.n., aspirin 81 mg once daily, Lovenox 20 mg subcutaneously once a day, Pepcid 20 mg p.o. twice a day, Robitussin with codeine 5 mL every 4 hours p.r.n., Zestril 5 mg daily, Zithromax 500 mg intravenously daily, Zofran 4 mg intravenously every 6 hours p.r.n. PHYSICAL EXAMINATION: GENERAL: Patient is a middle-aged male, who does not appear to be in any distress at this time. VITAL SIGNS: Blood pressure 156/103, heart rate 95, temperature 98.7, respirations 20. HEENT: Normocephalic. CHEST: Clear. HEART: S1 and S2 regular. EXTREMITIES: No edema. DIAGNOSTIC DATA: EKG revealed sinus rhythm with frequent APCs, right bundle-branch block, which has been an old findings from prior admission. Today's hemoglobin and hematocrit 12.4 and 36, white count 3.7, platelet count 229,000. SMA-7, sodium 135, potassium 3.7, chloride 102, CO2 of 28, glucose 237, BUN 11, creatinine 0.6. Two sets of troponins were negative. Blood sugar on admission was 198. Chest x-ray was unremarkable. ASSESSMENT: 1. Atypical chest pain, myocardial infarction is ruled out. 2. Consider upper respiratory tract infection. 3. Uncontrolled diabetes mellitus. RECOMMENDATIONS: Continue Zestril 5 mg once a day, Lovenox 20 mg subcutaneously once a day, aspirin 81 mg once a day, hydralazine 10 mg intravenously every 6 hours p.r.n. Obtain an echocardiogram and urine for drug screen. Hermes Mendes MD [facility] # [id number]
--- NOTE | 2018-03-27 05:37 | CP.PCM.PN ---
<Camden Way - Last Filed: 03/27/18 17:09> Subjective - Date & Time of Evaluation Date of Evaluation: 03/27/18 Time of Evaluation: 05:34 - Subjective Subjective: INTERNAL MEDICINE PROGRESS NOTE FOR DR. ANGIE Way D.O. PGY-1 Pt seen and examined at bedside this am. Pt reports he feeling much better, cough is improving and chest pain is resolving. He reports some soreness around his chest when he takes a deep breath. Pts sugars have been uncontrolled. He will start insulin detemir today at bedtime. He denies fevers, chills, headache, dizziness, numbness, tinglingshortness of breath, palpitations, abdominal pain, nausea, vomiting, constipation, diarrhea, dysuria. Objective - Vital Signs/Intake and Output Vital Signs (last 24 hours): Temp Pulse Resp BP Pulse Ox 98.9 F 61 19 134/72 98 03/27/18 00:01 03/27/18 02:00 03/27/18 00:01 03/27/18 00:01 03/27/18 00:01 Intake and Output: 03/26/18 03/27/18 18:59 06:59 Intake Total 1100 Balance 1100 - Medications Medications: Current Medications Acetaminophen (Tylenol 325mg Tab) 650 mg PO Q6H PRN PRN Reason: Fever >100.4 F Aspirin (Aspirin Chewable) 81 mg PO DAILY [facility] Last Admin: 03/26/18 10:09 Dose: 81 mg Enoxaparin Sodium (Lovenox) 40 mg SC DAILY [facility]; Protocol Last Admin: 03/26/18 10:09 Dose: 40 mg Famotidine (Pepcid) 20 mg PO 1000,2200 [facility] Last Admin: 03/26/18 22:27 Dose: 20 mg Guaifenesin (Robitussin) 100 mg PO Q4H PRN PRN Reason: Cough Hydralazine HCl (Apresoline) 10 mg IVP Q6H PRN PRN Reason: Systolic Blood Pressure Azithromycin (Zithromax 500mg In Ns) 500 mg in 250 mls @ 167 mls/hr IVPB DAILY [facility]; Protocol Last Admin: 03/26/18 10:08 Dose: 167 mls/hr Insulin Human Regular (Humulin R High) 0 units SC ACHS [facility]; Protocol Lisinopril (Zestril) 5 mg PO DAILY [facility] Last Admin: 03/26/18 10:09 Dose: 5 mg Ondansetron HCl (Zofran Inj) 4 mg IVP Q6H PRN PRN Reason: Nausea/Vomiting - Labs Labs: 03/26/18 05:45 03/26/18 05:45 PT 11.0 SECONDS (9.4-12.5) 03/25/18 15:35 INR 0.97 03/25/18 15:35 APTT 27.8 Seconds (25.1-36.5) 03/25/18 15:35 - Constitutional Appears: Well, Non-toxic, No Acute Distress - Head Exam Head Exam: NORMAL INSPECTION, NORMOCEPHALIC - Eye Exam Eye Exam: EOMI, Normal appearance - ENT Exam ENT Exam: Mucous Membranes Moist - Neck Exam Neck Exam: Normal Inspection. absent: Meningismus - Respiratory Exam Respiratory Exam: Rhonchi, NORMAL BREATHING PATTERN - Cardiovascular Exam Cardiovascular Exam: REGULAR RHYTHM, +S1, +S2 - GI/Abdominal Exam GI & Abdominal Exam: Soft, Normal Bowel Sounds - Extremities Exam Extremities Exam: Normal Inspection. absent: Calf Tenderness - Back Exam Back Exam: NORMAL INSPECTION. absent: CVA tenderness (L), CVA tenderness (R) - Neurological Exam Neurological Exam: Alert, Awake, Oriented x3 - Psychiatric Exam Psychiatric exam: Normal Affect, Normal Mood - Skin Skin Exam: Dry, Intact, Warm Assessment and Plan - Assessment and Plan (Free Text) Assessment: 62 y/o M admitted for chest pain to r/o ACS. EKG obtained in ER showed RBBB, unchanged from previous EKG. Chest xray was negative. Troponins were negative. Pt admitted to observation Plan: Chest Pain r/o ACS troponin x 3: (-). EKGs unchanged EKG: Septal infarct, age undetermined. Sinus arrythmia. RBBB, unchanged from previous EKG. Cardiology consulted: Dr. Mendes. Appreciate recs Chest Xray: negative Start aspirin 81mg Start atorvastatin NS@[address] D-dimer CT angio: (-) Hx of uncontrolled NIDDM Sugars have been uncontrolled Start bedtime detemir Start low dose SS insulin Secondary to non-compliance Accuchecks q4h Cough Start azithromycin f/u sputum culture Start guaifenesin Substance use UDS (+) cannabinoids Encourage cessation Likely contributing to cough HTN Start lisinopril Start hydralazine IVP prn DVT/GI PPx: Lovenox/Pepcid Disposition: Discharge planning with home insulin once sugars have been controlled in the hospital Case seen, examined and discussed with attending physician, Dr. Andrew <Venus Andrew R - Last Filed: 03/30/18 17:56> Objective - Vital Signs/Intake and Output Vital Signs (last 24 hours): Temp Pulse Resp BP Pulse Ox 98.6 F 77 16 157/77 H 100 03/29/18 18:00 03/29/18 18:00 03/29/18 18:00 03/29/18 18:00 03/29/18 18:00 - Labs Labs: 03/29/18 06:00 03/29/18 06:00 PT 11.0 SECONDS (9.4-12.5) 03/25/18 15:35 INR 0.97 03/25/18 15:35 APTT 27.8 Seconds (25.1-36.5) 03/25/18 15:35 Attending/Attestation - Attestation I have personally seen and examined this patient.: Yes I have fully participated in the care of the patient.: Yes I have reviewed all pertinent clinical information, including history, physical exam and plan: Yes Notes (Text): Patient seen and examined by me with resident at 10:15AM on 03/27/18 with resident. Case including HPI, physical exam, and assessment and plan discussed with resident. Agree with above with following additions/corrections. Patient is a 62-year-old male with past medical history significant for type 2 diabetes that came in with chest pain. Patient states that he feels better today. Cough has become minimal. Chest pain has resolved. No abdominal pain, nausea, or vomiting. No shortness of breath or palpitations. No headaches or dizziness. No fevers or chills. No dysuria. No diarrhea or constipation. Physical exam: Gen: Awake and alert lying in bed in no acute distress HEENT: Normocephalic, atraumatic. Extraocular muscles intact, pupils equal reactive. No scleral icterus. Oropharynx is pink and moist. Neck is supple. Cardiovascular: Normal rhythm. Normal S1, S2. No murmurs, rubs, or gallops appreciated Pulmonary: Normal respiratory effort. No rhonchi, rales, or wheezing appreciated. Gastrointestinal: Soft. Nondistended. Nontender. Positive bowel sounds all 4 quadrants, no guarding. Musculoskeletal: Normal range of motion all extremities. No calf tenderness. No edema appreciated. Central nervous system: AAO x 3. Dermatologic: Skin warm and dry. Assessment and plan: Patient is a 62-year-old male with past medical history significant for type 2 diabetes that came in with chest pain. 1. Chest pain. Pleuritic. Secondary to cough. ACS ruled out. Troponins within normal limits. Cardiology following, recommendations appreciated. CTA chest per radiologist showed unremarkable CT pulmonary angiogram, no pulmonary embolus. 2D echo per [employer] consultant showed left ventricle is normal, normal left ventricular wall thickness, left ventricular function is normal, EF is within normal range, normal LV segmental wall motion, left ventricular diastolic function is normal, sever pulmonary hypertension. Continue ASA and lisinopril 2. Cough. URI. Improved. Patient was started on Zithromax on admission. Complete treatment. Continue robitussin as needed. 3. DM2 with hyperglycemia. HgbA1C 13.9. Continue insulin sliding scale. Started on Levemir. Continue to monitor accuchecks. 4. Hypertension. Continue Lisinopril 5. Substance abuse. Patient counseled on marijuana cessation. Case discussed in detail with patient regarding current diagnosis and treatment plan. All questions answered.
[2018-03-27 06:38] LABS: BASO # 0.02 K/mm3 (0.0-2.0); BASO % 0.5 % (0.0-3.0); EOS # 0.1 (0.0-0.7); EOS % 2.2 % (1.5-5.0); GRAN # 1.91 (1.4-6.5); GRAN % 46.8 % (50.0-68.0); HEMOGLOBIN 12.2 g/dL (14.0-18.0); LYMPH # 1.7 (1.2-3.4); LYMPH % 42.4 % (22.0-35.0); MEAN CELL VOLUME 86.1 fl (80.0-105.0); MEAN CORPUSCULAR HEMOGLOBIN 29.8 pg (25.0-35.0); MEAN CORPUSCULAR HGB CONC 34.7 g/dl (31.0-37.0); MEAN PLATELET VOLUME 10.4 fl (7.0-11.0); MONO # 0.3 (0.1-0.6); MONO % 8.1 % (1.0-6.0); RBC 4.09 10^6/uL (3.5-6.1); RED CELL DISTRIBUTION WIDTH 12.1 % (11.5-14.5); WHITE BLOOD COUNT 4.1 10^3/ul (4.5-11.0)
[2018-03-27 06:39] LABS: ALB/GLOB RATIO 1.3 (1.1-1.8); ALBUMIN 3.2 g/dL (3.0-4.8); ALT/SGPT 28 U/L (7-56); AST/SGOT 19 U/L (17-59); BLOOD UREA NITROGEN 12 mg/dL (7-21); CALCIUM 8.9 mg/dL (8.4-10.5); GFR NON-AFRICAN AMERICAN > 60
[2018-03-27] MEDS: Insulin Reg-HIGH-Coverage SC SCH ×4 (08:27→22:37)
[2018-03-27] MEDS: Enoxaparin 40 mg Syringe SC SCH (09:32)
[2018-03-27] MEDS: Azithromycin 500MG/NS 250ml 500 MG/250 ML BAG IVPB SCH (09:33)
--- NOTE | 2018-03-27 09:42 | CT ---
Date of service: 03/26/2018 PROCEDURE: CT Chest with contrast (Pulmonary Angiogram) HISTORY: r/o PE COMPARISON: None available. TECHNIQUE: Axial computed tomography images were obtained of the chest in the pulmonary arterial phase of enhancement. Coronal and sagittal reformatted images were created and reviewed. Intravenous contrast dose: 94 cc of Omni 350 Radiation dose: Total exam DLP = 386 mGy-cm. This CT exam was performed using one or more of the following dose reduction techniques: Automated exposure control, adjustment of the mA and/or kV according to patient size, and/or use of iterative reconstruction technique. FINDINGS: PULMONARY ARTERIES: Unremarkable. No pulmonary embolism. AORTA: No acute findings. No thoracic aortic aneurysm. LUNGS: Unremarkable. No nodule, mass or pulmonary consolidation. PLEURAL SPACES: Unremarkable. No effusion or pneumothorax. HEART: Unremarkable. No cardiomegaly. No significant pericardial effusion. LYMPH NODES: No lymphadenopathy. BONES, CHEST WALL: Unremarkable. No fracture or destructive lesion OTHER FINDINGS: The report concurs with the preliminary [facility] report IMPRESSION: Unremarkable CT pulmonary angiogram. No pulmonary embolus.
--- NOTE | 2018-03-27 14:06 | PN ---
DATE: 03/27/2018 FOLLOWUP SUBJECTIVE: The patient is experiencing sharp chest pain upon coughing or deep breathing. No retrosternal chest discomfort. PHYSICAL EXAMINATION: VITAL SIGNS: Blood pressure 144/88, heart rate 68, temperature 98.8, respirations 21. HEENT: Normocephalic. CHEST: Minimal rhonchi. HEART: S1 and S2 regular. EXTREMITIES: There is no edema. LABORATORY DATA: Today's SMA-7 is within normal limits except for glucose of 283 and creatinine of 0.6. Urine drug screen is positive for opiates and cannabinoids. Today's hemoglobin and hematocrit 12.2 and 35.2, white count 4.1, platelet count 233,000. A chest CT angio: Unremarkable CT pulmonary angiogram. No pulmonary embolus. ASSESSMENT: 1. Atypical chest pain. Myocardial infarction ruled out. 2. Consider upper respiratory tract infection. 3. Severe pulmonary hypertension, most likely secondary to underlying chronic obstructive lung disease. 4. Hypertension. RECOMMENDATIONS: Continue hydralazine 10 mg IV push every 6 hours p.r.n. Continue aspirin 81 mg once a day, Lovenox 40 mg subcutaneously once a day, Robitussin 100 mg p.o. every 4 hours p.r.n., Zestril at 5 mg daily. I did review the chest x-ray, which was consistent with over inflated lungs, consider COPD. Hermes Mendes MD
[2018-03-27] MEDS ORDERED: Insulin Detemir 100 units/ml Vial (Levemir) SC SCH (22:00)
[2018-03-28] MEDS: Insulin Reg-HIGH-Coverage SC SCH (08:50)
[2018-03-28] MEDS: Enoxaparin 40 mg Syringe SC SCH (09:37)
[2018-03-28] MEDS ORDERED: Insulin Regular 1 UNITS/0.01 ML ML SC SCH (11:30)
[2018-03-28] MEDS: Insulin Reg-LOW-Coverage SC SCH ×3 (11:50→21:28)
[2018-03-28] MEDS ORDERED: Dextrose 50% SYRINGE Inj (50 ml) IV PRN (13:48)
--- NOTE | 2018-03-28 14:07 | CP.PCM.PN ---
<Chris Rush - Last Filed: 03/28/18 13:50> Subjective - Date & Time of Evaluation Date of Evaluation: 03/28/18 Time of Evaluation: 13:50 - Subjective Subjective: PGY-[address] Reich No acute events noted overnight. Patient did not offer any complaints - stated he occasionally get paresthesia in his feet b/l. He understood how severe his diabetes was and what he needs to do going forward. Objective - Vital Signs/Intake and Output Vital Signs (last 24 hours): Temp Pulse Resp BP Pulse Ox 97.8 F 67 18 147/81 100 03/28/18 12:00 03/28/18 12:00 03/28/18 12:00 03/28/18 12:00 03/28/18 06:00 Intake and Output: 03/28/18 03/28/18 06:59 18:59 Intake Total 360 Balance 360 - Medications Medications: Current Medications Acetaminophen (Tylenol 325mg Tab) 650 mg PO Q6H PRN PRN Reason: Fever >100.4 F Aspirin (Aspirin Chewable) 81 mg PO DAILY [facility] Last Admin: 03/28/18 09:36 Dose: 81 mg Azithromycin (Zithromax) 500 mg PO DAILY [facility] Stop: 03/31/18 10:01 Last Admin: 03/28/18 09:36 Dose: 500 mg Dextrose (Dextrose 50% Inj) 0 ml IV STAT PRN; Protocol PRN Reason: Hypoglycemia Protocol Enoxaparin Sodium (Lovenox) 40 mg SC DAILY [facility]; Protocol Last Admin: 03/28/18 09:37 Dose: 40 mg Famotidine (Pepcid) 20 mg PO 1000,2200 [facility] Last Admin: 03/28/18 09:37 Dose: 20 mg Guaifenesin (Robitussin) 100 mg PO Q4H PRN PRN Reason: Cough Hydralazine HCl (Apresoline) 10 mg IVP Q6H PRN PRN Reason: Systolic Blood Pressure Dextrose (Dextrose 5% In Water 1000 Ml) 1,000 mls @ 0 mls/hr IV .Q0M PRN; Protocol PRN Reason: Hypoglycemia Protocol Insulin Detemir (Levemir) 15 unit SC [facility] Insulin Human Lispro (Humalog Med) 5 units SC [facility]; Protocol Insulin Human Regular (Humulin R Low) 0 units SC [facility]; Protocol Last Admin: 03/28/18 11:50 Dose: 4 unit Lisinopril (Zestril) 5 mg PO DAILY [facility] Last Admin: 03/28/18 09:37 Dose: 5 mg Ondansetron HCl (Zofran Inj) 4 mg IVP Q6H PRN PRN Reason: Nausea/Vomiting - Labs Labs: 03/27/18 05:20 03/27/18 05:20 PT 11.0 SECONDS (9.4-12.5) 03/25/18 15:35 INR 0.97 03/25/18 15:35 APTT 27.8 Seconds (25.1-36.5) 03/25/18 15:35 - Additional Findings Additional findings: - Constitutional Appears: Well, Non-toxic, No Acute Distress - Head Exam Head Exam: NORMAL INSPECTION, NORMOCEPHALIC - Eye Exam Eye Exam: EOMI, Normal appearance - ENT Exam ENT Exam: Mucous Membranes Moist - Neck Exam Neck Exam: Normal Inspection. absent: Meningismus - Respiratory Exam Respiratory Exam: Rhonchi, NORMAL BREATHING PATTERN - Cardiovascular Exam Cardiovascular Exam: REGULAR RHYTHM, +S1, +S2 - GI/Abdominal Exam GI & Abdominal Exam: Soft, Normal Bowel Sounds - Extremities Exam Extremities Exam: Normal Inspection. absent: Calf Tenderness - Back Exam Back Exam: NORMAL INSPECTION. absent: CVA tenderness (L), CVA tenderness (R) - Neurological Exam Neurological Exam: Alert, Awake, Oriented x3 - Psychiatric Exam Psychiatric exam: Normal Affect, Normal Mood - Skin Skin Exam: Dry, Intact, Warm Assessment and Plan - Assessment and Plan (Free Text) Plan: 62 y/o M admitted for chest pain to r/o ACS. EKG obtained in ER showed RBBB, unchanged from previous EKG. Chest xray was negative. Troponins were negative. Pt admitted to observation Plan: Uncontrolled Diabetes Mellitus HgbA1c 13.9 Previously non-compliant with medications (occasionally took his metformin but not his glyburide due to running out) Aspirin 81mg po qd for primary prevention Holding statin for now but should be placed on statin for primary prevention Levemir 15u sc hs humalog 5u sc achs Accuchecks achs Will need training on insulin administration prior to discharge Hypoglycemia protocol Chest Pain Likely 2/2 to URI ACS ruled out troponin x 3: (-), EKGs unchanged EKG: Septal infarct, age undetermined. Sinus arrythmia. RBBB, unchanged from previous EKG. Cardiology consulted: Dr. Mendes. Appreciate recs Chest Xray: negative for acute pathology; possibly overinflated - consider COPD Echo showed severe pulmonary hypertension otherwise normal echo URI azithromycin 500mg po qd for 3 more days (finish 03/31) sputum culture positive for yeast species guaifenesin 100mg po q4h prn for cough nystatin 5ml oral suspension po qid Elevated D-dimer D-dimer [address] angio (-) for PE Substance use UDS (+) cannabinoids Encourage cessation Likely contributing to cough HTN lisinopril 5mg po qd hydralazine 10mg IVP q6h prn DVT/GI/Diet: Lovenox 40 sc qd/Pepcid 20mg po bid/HHD Disposition: Discharge planning with home insulin once sugars have been controlled in the hospital Case seen, examined and discussed with attending physician, Dr. Reich <Michael Reich - Last Filed: 03/28/18 16:07> Objective - Vital Signs/Intake and Output Vital Signs (last 24 hours): Temp Pulse Resp BP Pulse Ox 97.8 F 90 18 140/84 100 03/28/18 12:00 03/28/18 14:24 03/28/18 14:24 03/28/18 14:24 03/28/18 06:00 Intake and Output: 03/28/18 03/28/18 06:59 18:59 Intake Total 360 Balance 360 - Medications Medications: Current Medications Acetaminophen (Tylenol 325mg Tab) 650 mg PO Q6H PRN PRN Reason: Fever >100.4 F Aspirin (Aspirin Chewable) 81 mg PO DAILY [facility] Last Admin: 03/28/18 09:36 Dose: 81 mg Azithromycin (Zithromax) 500 mg PO DAILY [facility] Stop: 03/31/18 10:01 Last Admin: 03/28/18 09:36 Dose: 500 mg Dextrose (Dextrose 50% Inj) 0 ml IV STAT PRN; Protocol PRN Reason: Hypoglycemia Protocol Enoxaparin Sodium (Lovenox) 40 mg SC DAILY [facility]; Protocol Last Admin: 03/28/18 09:37 Dose: 40 mg Famotidine (Pepcid) 20 mg PO 1000,2200 [facility] Last Admin: 03/28/18 09:37 Dose: 20 mg Guaifenesin (Robitussin) 100 mg PO Q4H PRN PRN Reason: Cough Hydralazine HCl (Apresoline) 10 mg IVP Q6H PRN PRN Reason: Systolic Blood Pressure Dextrose (Dextrose 5% In Water 1000 Ml) 1,000 mls @ 0 mls/hr IV .Q0M PRN; Protocol PRN Reason: Hypoglycemia Protocol Insulin Detemir (Levemir) 15 unit SC [facility] Insulin Human Lispro (Humalog Med) 5 units SC [facility]; Protocol Insulin Human Regular (Humulin R Low) 0 units SC [facility]; Protocol Last Admin: 03/28/18 11:50 Dose: 4 unit Lisinopril (Zestril) 5 mg PO DAILY [facility] Last Admin: 03/28/18 09:37 Dose: 5 mg Nystatin (Nystatin Oral Susp) 5 ml PO QID [facility] Ondansetron HCl (Zofran Inj) 4 mg IVP Q6H PRN PRN Reason: Nausea/Vomiting - Labs Labs: 03/27/18 05:20 03/27/18 05:20 PT 11.0 SECONDS (9.4-12.5) 03/25/18 15:35 INR 0.97 03/25/18 15:35 APTT 27.8 Seconds (25.1-36.5) 03/25/18 15:35 Attending/Attestation - Attestation I have personally seen and examined this patient.: Yes I have fully participated in the care of the patient.: Yes I have reviewed all pertinent clinical information, including history, physical exam and plan: Yes
[2018-03-28] MEDS: Nystatin 100,000 Units/ml Oral Susp 5 ml UD PO SCH ×2 (17:13→21:41)
[2018-03-28] MEDS: Insulin Lispro (humaLOG) MEDIUM Coverage SC SCH ×2 (17:14→21:41)
[2018-03-28] MEDS ORDERED: Insulin Detemir 100 units/ml Vial (Levemir) SC SCH (22:00)
[2018-03-29 07:19] LABS: ALB/GLOB RATIO 1.2 (1.1-1.8); ALBUMIN 3.8 g/dL (3.0-4.8); ALT/SGPT 26 U/L (7-56); AST/SGOT 26 U/L (17-59); BLOOD UREA NITROGEN 16 mg/dL (7-21); CALCIUM 9.3 mg/dL (8.4-10.5); GFR NON-AFRICAN AMERICAN > 60
[2018-03-29 07:29] LABS: BASO # 0.03 K/mm3 (0.0-2.0); BASO % 0.5 % (0.0-3.0); EOS # 0.1 (0.0-0.7); EOS % 2.4 % (1.5-5.0); GRAN # 2.46 (1.4-6.5); GRAN % 41.9 % (50.0-68.0); HEMOGLOBIN 14.1 g/dL (14.0-18.0); LYMPH # 2.7 (1.2-3.4); LYMPH % 45.2 % (22.0-35.0); MEAN CELL VOLUME 86.8 fl (80.0-105.0); MEAN CORPUSCULAR HEMOGLOBIN 30.1 pg (25.0-35.0); MEAN CORPUSCULAR HGB CONC 34.7 g/dl (31.0-37.0); MEAN PLATELET VOLUME 10.5 fl (7.0-11.0); MONO # 0.6 (0.1-0.6); RBC 4.68 10^6/uL (3.5-6.1); RED CELL DISTRIBUTION WIDTH 12.2 % (11.5-14.5); WHITE BLOOD COUNT 5.9 10^3/ul (4.5-11.0)
[2018-03-29] MEDS: Insulin Lispro (humaLOG) MEDIUM Coverage SC SCH ×3 (07:42→17:30)
[2018-03-29] MEDS: Insulin Reg-LOW-Coverage SC SCH ×3 (07:43→17:30)
[2018-03-29] MEDS: Nystatin 100,000 Units/ml Oral Susp 5 ml UD PO SCH ×3 (09:18→17:30)
[2018-03-29] MEDS: Enoxaparin 40 mg Syringe SC SCH (09:19)
[2018-03-29] MEDS ORDERED: Insulin Detemir 100 units/ml Vial (Levemir) SC SCH ×2 (09:38→09:40)
[2018-03-29 12:43] VITALS: RESP 16
[2018-03-29 18:26] VITALS: BP 157/77; PULSE 77; TEMP 98.6; O2SAT 100
--- NOTE | 2018-03-29 22:06 | CP.PCM.DIS ---
Provider - Provider Date of Admission: 03/27/18 11:03 Attending physician: Venus Andrew DO Primary care physician: Nalini CASTANEDANArianne Consults: Cardio: Dr. Mendes Time Spent in preparation of Discharge (in minutes): 51 Hospital Course - Lab Results Lab Results: Micro Results 03/25/18 23:35 Sputum Gram Stain - Final 03/25/18 23:35 Sputum Sputum Culture - Final Yeast Species Most Recent Lab Values WBC 5.9 10^3/ul (4.5-11.0) D 03/29/18 06:00 RBC 4.68 10^6/uL (3.5-6.1) 03/29/18 06:00 Hgb 14.1 g/dL (14.0-18.0) 03/29/18 06:00 Hct 40.6 % (42.0-52.0) L 03/29/18 06:00 MCV 86.8 fl (80.0-105.0) 03/29/18 06:00 MCH 30.1 pg (25.0-35.0) 03/29/18 06:00 MCHC 34.7 g/dl (31.0-37.0) 03/29/18 06:00 RDW 12.2 % (11.5-14.5) 03/29/18 06:00 Plt Count 255 10^3/uL (120.0-450.0) 03/29/18 06:00 MPV 10.5 fl (7.0-11.0) 03/29/18 06:00 Gran % 41.9 % (50.0-68.0) L 03/29/18 06:00 Lymph % (Auto) 45.2 % (22.0-35.0) H 03/29/18 06:00 Craven % (Auto) 10.0 % (1.0-6.0) H 03/29/18 06:00 Eos % (Auto) 2.4 % (1.5-5.0) 03/29/18 06:00 Baso % (Auto) 0.5 % (0.0-3.0) 03/29/18 06:00 Gran # 2.46 (1.4-6.5) 03/29/18 06:00 Lymph # (Auto) 2.7 (1.2-3.4) 03/29/18 06:00 Craven # (Auto) 0.6 (0.1-0.6) 03/29/18 06:00 Eos # (Auto) 0.1 (0.0-0.7) 03/29/18 06:00 Baso # (Auto) 0.03 K/mm3 (0.0-2.0) 03/29/18 06:00 PT 11.0 SECONDS (9.4-12.5) 03/25/18 15:35 INR 0.97 03/25/18 15:35 APTT 27.8 Seconds (25.1-36.5) 03/25/18 15:35 D-Dimer, Quantitative 296 ng/mlDDU (0-243) H 03/26/18 18:10 Sodium 138 mmol/L (132-148) 03/29/18 06:00 Potassium 3.6 mmol/L (3.6-5.0) 03/29/18 06:00 Chloride 101 mmol/L (98-107) 03/29/18 06:00 Carbon Dioxide 29 mmol/L (21-33) 03/29/18 06:00 Anion Gap 11 (10-20) 03/29/18 06:00 BUN 16 mg/dL (7-21) 03/29/18 06:00 Creatinine 0.6 mg/dl (0.8-1.5) L 03/29/18 06:00 Est GFR ( Amer) > 60 03/29/18 06:00 Est GFR (Non-Af Amer) > 60 03/29/18 06:00 POC Glucose (mg/dL) 191 mg/dL (65-110) H 03/29/18 16:14 Random Glucose 93 mg/dL (70-110) 03/29/18 06:00 Hemoglobin A1c 13.9 % (4.2-6.5) H D 03/26/18 05:45 Calcium 9.3 mg/dL (8.4-10.5) 03/29/18 06:00 Magnesium 1.7 mg/dL (1.7-2.2) 03/25/18 15:35 Total Bilirubin 0.3 mg/dL (0.2-1.3) 03/29/18 06:00 AST 26 U/L (17-59) 03/29/18 06:00 ALT 26 U/L (7-56) 03/29/18 06:00 Alkaline Phosphatase 65 U/L (38-126) 03/29/18 06:00 Lactate Dehydrogenase 438 U/L (333-699) 03/25/18 15:35 Total Creatine Kinase 42 U/L (35-230) 03/25/18 15:35 Troponin I < 0.01 ng/mL 03/26/18 08:40 Total Protein 6.8 g/dL (5.8-8.3) 03/29/18 06:00 Albumin 3.8 g/dL (3.0-4.8) 03/29/18 06:00 Globulin 3.0 gm/dL 03/29/18 06:00 Albumin/Globulin Ratio 1.2 (1.1-1.8) 03/29/18 06:00 Triglycerides 80 mg/dL (35-160) 03/26/18 05:45 Cholesterol 142 mg/dL (130-200) 03/26/18 05:45 LDL Cholesterol Direct 63 mg/dL (0-129) 03/26/18 05:45 HDL Cholesterol 46 mg/dL (29-60) 03/26/18 05:45 Procalcitonin < 0.05 NG/ML (0.19-0.49) L 03/25/18 15:35 TSH 3rd Generation 0.93 mIU/mL (0.46-4.68) 03/26/18 05:45 Urine Color Yellow (YELLOW) 03/25/18 17:05 Urine Appearance Clear (CLEAR) 03/25/18 17:05 Urine pH 6.5 (4.7-8.0) 03/25/18 17:05 Ur Specific Boles 1.010 (1.005-1.035) 03/25/18 17:05 Urine Protein Negative mg/dL (<30 mg/dL) 03/25/18 17:05 Urine Glucose (UA) >=1000 mg/dL (NEGATIVE) 03/25/18 17:05 Urine Ketones Negative mg/dL (NEGATIVE) 03/25/18 17:05 Urine Blood Negative (NEGATIVE) 03/25/18 17:05 Urine Nitrate Negative (NEGATIVE) 03/25/18 17:05 Urine Bilirubin Negative (NEGATIVE) 03/25/18 17:05 Urine Urobilinogen 0.2 E.U./dL (<1 E.U./dL) 03/25/18 17:05 Ur Leukocyte Esterase Negative Fatmata/uL (NEGATIVE) 03/25/18 17:05 Urine Opiates Screen Positive (NEGATIVE) H 03/26/18 18:30 Urine Methadone Screen Negative (NEGATIVE) 03/26/18 18:30 Ur Barbiturates Screen Negative (NEGATIVE) 03/26/18 18:30 Ur Phencyclidine Scrn Negative (NEGATIVE) 03/26/18 18:30 Ur Amphetamines Screen Negative (NEGATIVE) 03/26/18 18:30 U Benzodiazepines Scrn Negative (NEGATIVE) 03/26/18 18:30 U Oth Cocaine Metabols Negative (NEGATIVE) 03/26/18 18:30 U Cannabinoids Screen Positive (NEGATIVE) H 03/26/18 18:30 - Hospital Course Hospital Course: 62 year old male with a past medical history significant for NIDDM2 who pres ented with chest pain. An EKG obtained in the ER showed RBBB, which was unchanged from previous EKG. A Chest xray was negative for any acute processes. Three serial troponins were negative. A d-dimer was found to be mildly elevated but CT Angio of the Chest was negative for PE. An Echocardiogram showed pHTN but otherwise normal. Cardiology was consulted. Patient was started on ASA, Lisinopril and Hydralazine PRN. Patient was found to have an A1c of 13.9% and was eventually started and discharged on 8u of long acting insulin HS (Levemir while inpatient; DC'd on Lantus) and 5u AC of Humalog. DM educator was consulted and educated patient on how to administer insulin as well as to provide him with glucometer and instructions on how to use the glucometer. Patient also complained of a cough. He was started on Zithromax and Robitussin PRN. Patient remained HDS and was discharged on 03/29/2018 with instructions and prescriptions as written below. - Date & Time of H&P Date of H&P: 03/25/18 Time of H&P: 18:29 Discharge Exam - Head Exam Head Exam: NORMAL INSPECTION, NORMOCEPHALIC - Eye Exam Eye Exam: EOMI, Normal appearance, PERRL - ENT Exam ENT Exam: Mucous Membranes Moist, Normal Exam - Neck Exam Neck exam: Full Rom, Normal Inspection - Respiratory Exam Respiratory Exam: Clear to PA & Lateral, NORMAL BREATHING PATTERN, UNREMARKABLE - Cardiovascular Exam Cardiovascular Exam: REGULAR RHYTHM - GI/Abdominal Exam GI & Abdominal Exam: Normal Bowel Sounds, Unremarkable - Extremities Exam Extremities exam: normal inspection - Neurological Exam Neurological exam: Alert, Normal Gait, Oriented x3 - Psychiatric Exam Psychiatric exam: Normal Affect, Normal Mood - Skin Skin Exam: Dry, Intact, Normal Color, Warm Discharge Plan - Discharge Medications Prescriptions: Aspirin [Aspirin Chewable] 81 mg PO DAILY #14 chew Azithromycin [Zithromax] 500 mg PO DAILY #2 tab Insulin Glargine,Hum.rec.anlog [Lantus Solostar] 8 unit SQ HS #1 insuln.pen Insulin Lispro [Humalog Kwikpen U-200] 5 unit SQ AC #1 insuln.pen Lisinopril [Zestril] 5 mg PO DAILY #14 tab - Follow Up Plan Condition: STABLE Disposition: HOME/ ROUTINE Instructions: Heart Healthy Diet, Quitting Smoking for Older Adults, Diabetes Diet , Chest Pain (DC), Hyperglycemia, Adult (DC), Blood Glucose Monitoring, Using Insulin, How to Use an Insulin Pen, Chest Pain (DC), Chest Pain (GEN) Additional Instructions: Please follow up with your primary care doctor at the [facility] with 3-5 days. We have called ahead and requested an appointment for Tuesday April 03, 2018. Their scheduling should call you to confirm the details of this appointment and any additional instructions you may need. If you have not heard from 48 hours after discharge, please call the office to confirm your scheduling. The contact information for the clinic has been provided in this paperwork. You are being discharged home with two types of insulin that you will need to take as follows: 1. Insulin Lantus (long acting insulin; similar to Levemir that you received in hospital): Please take 8 units at bedtime every night 2. Insulin Humalog (short acting insulin): Please take 5 units after each meal. Please do not take this insulin if you are skipping a meal. You have been given education on how to administer your insulin while in the hospital. Please also ask your pharmacist to provide additional education once you cook pickled meat your prescription from the pharmacy. Always check your blood sugar before administering your insulin to ensure that your blood sugar does not get too low. You will need to check your blood sugar at least four times per day (with each meal and at bedtime). You have been given a machine that tests your blood sugar and a prescription for lancets and test strips. You are also being sent home with three other medications: 3. Zithromax 500mg (antibiotic): Take one pill daily for the next two days 4. Lisinopril 5mg (blood pressure pill): Take one pill daily 5. Aspirin 81mg (anti-platelet): Take one pill daily You can take over the counter Robitussin for cough as needed. Please adhere with all dosing recommendations provided on the bottle. If your symptoms return, please return to the nearest emergency room as soon as possible for further evaluation. Referrals: [facility] [place]Outside]
== END 2018-03-29 18:35 | disposition home or self-care (01) | DRG 313 ==
LOC: ED 13:59 → ERH 18:06 → 2RNO 23:07 → OBSVTOIN 03-27 11:03
PROVIDERS: ADMIT Hospitalist; ATTEND Hospitalist
DX: R07.89 Other chest pain (principal); I45.10 Unspecified right bundle-branch block; E11.42 Type 2 diabetes mellitus with diabetic polyneuropathy; E11.65 Type 2 diabetes mellitus with hyperglycemia; I27.20 Pulmonary hypertension, unspecified; J44.9 Chronic obstructive pulmonary disease, unspecified; I10 Essential (primary) hypertension; J06.9 Acute upper respiratory infection, unspecified; F17.200 Nicotine dependence, unspecified, uncomplicated; F12.90 Cannabis use, unspecified, uncomplicated; Z85.46 Personal history of malignant neoplasm of prostate

== ENCOUNTER 2018-09-07 16:10 | Outpatient (CLI) | payer OTHER | END 2018-09-07 16:11 | disposition home or self-care (01) | LOC: LAB 16:10 ==

== ENCOUNTER 2018-09-11 09:23 | Outpatient (CLI) | payer OTHER | END 2018-09-11 09:24 | disposition home or self-care (01) | LOC: RAD 09:23 ==

== ENCOUNTER → 2018-09-22 | Outpatient (CLI) | payer OTHER | LOC: RAD 08:20 ==